=== PATIENT | male | born 1960 | race African-American/Black ===

== ENCOUNTER 2016-12-31 12:27 | Day surgery (SDC) | payer OTHER ==
[~2016-12-31 12:27] MED LIST: DIPHENHYDRAMINE HCL 50 MG/ML VIAL ONE; EPINEPHRINE INJ 1 MG/10 ML DISP.SYRIN ONE; FENTANYL CITRATE INJ/PF 100 MCG/2 ML AMPUL ONE; FLUMAZENIL INJ 0.5 MG/5 ML VIAL IV ONE; GLUCAGON,HUMAN RECOMB 1 MG INJ ONE; NALOXONE HCL INJ/PF 0.4 MG/1 ML SDV ONE; ONDANSETRON HCL INJ/PF 4 MG/2 ML SDV ONE
[2016-12-31] MEDS: MIDAZOLAM 2 MG/2 ML INJ ONE ×2 (12:34→12:40)
--- NOTE | 2016-12-31 13:36 | Operative Report ---
Operative Report DATE OF SURGERY: 12/31/16 Operative Report: The risks, benefits and alternatives of the procedure including risks of bleeding, perforation requiring surgery are expected to the patient detail and informed consent is obtained. Patient is placed in a left, lateral decubital position. Timeout is called. Conscious sedation medications are provided. An Olympus videoscope was inserted into the patient's rectum. The scope was then gradually advanced all the way to the cecum. The cecum was identified by the usual anatomical landmarks including the ileocecal valve as well as the appendiceal office. Photodocumentation was obtained. Prep is good. The scope was then sequentially pulled back via the rest was of the colon including the ascending colon, hepatic flexure, transverse colon, splenic flexure, descending colon and finally into the rectosigmoid portions of the colon. Which of infection maneuvers performed. PREOPERATIVE DIAGNOSIS: Colorectal cancer screening. POSTOPERATIVE DIAGNOSIS: 2 polyps one in the splenic flexure area that is removed via snare polypectomy. Pedunculated polyp noted in the descending colon removed via snare polypectomy and retrieved OPERATION: Colonoscopy with snare polypectomy SURGEON: KATRINA LIU ANESTHESIA: Moderate Sedation - 4 mg of Versed, 100 g of fentanyl. Conscious sedation monitoring time 30 minutes. TISSUE REMOVED OR ALTERED: Both colon polyps are retrieved. COMPLICATIONS: None. ESTIMATED BLOOD LOSS: none. INTRAOPERATIVE FINDINGS: Described above. PROCEDURE: Patient tolerated the procedure well. No immediate postprocedure complications are noted. Patient discharged in good condition. Discharge date 12/31/2016. Discharge diet: Regular. Discharge activity: Regular. 2-3 week follow-up to discuss findings. Follow-up on biopsies. Patient is instructed to call the office or proceed to the emergency room should there be any further problems or questions. Surveillance colonoscopy in 3 years.
[2016-12-31 13:56] VITALS: BP 118/74
== END 2016-12-31 14:05 | disposition home or self-care (01) ==
LOC: END 12:27
PROVIDERS: ATTEND Internal Medicine Gastroenterology
PROC: 0DBL8ZX Excision of Transverse Colon, Via Natural or Artificial Opening Endoscopic, Diagnostic (ICD-10-PCS; 2016-12-31)
PROC: 0DBM8ZX Excision of Descending Colon, Via Natural or Artificial Opening Endoscopic, Diagnostic (ICD-10-PCS; principal; 2016-12-31 12:30)
DX: Z12.11 Encounter for screening for malignant neoplasm of colon (principal); K63.5 Polyp of colon; D12.4 Benign neoplasm of descending colon
CPT/HCPCS: 45385; 88305 ×2; J2250; J3010; J0171; J1200; J1610; J2310; J2405; J3490